=== PATIENT | male | born 1995 | race Two or more races ===

== ENCOUNTER 2021-10-12 21:58 | Emergency (ER) | payer MEDICAID ==
[~2021-10-12] VITALS: Ht 170.2 cm; Wt 86.2 kg
[2021-10-12 23:42] VITALS: BP 139/95
[2021-10-13] MEDS ORDERED: KETOROLAC TROMETH 60MG/2ML VIAL IM ONE (01:00)
[2021-10-13] MEDS ORDERED: ONDA-144 PO (01:02)
== END 2021-10-13 01:26 | disposition home or self-care (01) ==
LOC: ER 21:58
DX: B34.9 Viral infection, unspecified (principal); R50.9 Fever, unspecified; R51.9 Headache, unspecified; Z20.822 Contact with and (suspected) exposure to COVID-19
CPT/HCPCS: 36415; 87426; 96372; 99283; J1885